=== PATIENT | male | born 1990 | race Caucasian/White ===

== ENCOUNTER 2018-12-09 12:05 | Emergency (ER) | payer SELFPAY ==
[~2018-12-09] VITALS: Ht 177.8 cm; Wt 68.0 kg
[2018-12-09 12:09] VITALS: Ht 177.8 cm; Wt 68.0 kg
[2018-12-09 12:34] LABS: CALCIUM 9.3 mg/dL (8.5-10.1); CARBON DIOXIDE 25.9 mmol/L (21-32); CHLORIDE SERUM 110 mmol/L (98-107); CREATININE SERUM 0.9 mg/dL (0.7-1.3); GFR1 > 60 mL/min; GLUCOSE SERUM 82 mg/dL (74-106); POTASSIUM SERUM 3.8 mmol/L (3.5-5.1); SODIUM SERUM 147 mmol/L (136-145)
[2018-12-09 12:36] LABS: BASOPHIL % 0.5 % (0-2); PLATELET COUNT 261 x10^3mcL (130-400); RED CELL DISTRIBUTION WIDTH 12.7 % (11.5-14.5)
[2018-12-09 12:39] LABS: ALBUMIN 4.4 g/dL (3.4-5.0); ALKALINE PHOSPHATASE 63 U/L (46-116); ALT/SGPT 33 U/L (16-63); AST/SGOT 42 U/L (15-37); BILIRUBIN TOTAL 0.33 mg/dL (0.20-1.00); TOTAL PROTEIN, SERUM 7.3 g/dL (6.4-8.2)
[2018-12-09 13:11] LABS: AMPHETAMINE QUAL UR NONE DETECTED (See below)
--- NOTE | 2018-12-10 16:39 | NUR ---
Called the following facilities with [facility] beds availability[facility], [facility]w [facility], s[facility]w [facility], [facility]
[2018-12-10 16:47] VITALS: BP 117/69
== END 2018-12-10 16:47 | disposition home or self-care (01) ==
LOC: ED 12:05
PROVIDERS: Emergency Medicine
DX: F19.20 Other psychoactive substance dependence, uncomplicated (principal); F43.9 Reaction to severe stress, unspecified
CPT/HCPCS: 36415; G0480; J3490